=== PATIENT | female | born 1950 | race Caucasian/White ===

== ENCOUNTER 2017-04-21 14:36 | Outpatient (CLI) | payer MEDICARE ==
--- NOTE | 2017-04-21 15:38 | RAD ---
CERVICAL SPINE AP AND LATERAL: History: N54.12 cervical radiculopathy. FINDINGS: ACDF at C4-5 with adequate osseous corporation. There is also posterior spinal fusion at this level s een laterally on the right. There is progressive degenerative disc space disease at C6-7 with bridgin g osteophyte. There is also some new height loss at C6. There is also degenerative disease at C6-7. There appears to be a fracture of the odontoid process. This can be seen back to 2008 and likely a no n-union. IMPRESSION: 1. Chronic non-union odontoid process fracture. 2. Progressive degenerative disc space disease at C6-7 with height loss, anterior osteophyte formatio n as well as height loss at the C6 vertebral body and C7 vertebral bodies. POS: [facility]
--- NOTE | 2017-04-21 16:21 | MRI ---
MRI CERVICAL SPINE WITHOUT CONTRAST 04/21/17 HISTORY: M54.12, cervical radiculopathy. Right neck pain radiating down to the right arm for one month. COMPARISON: Cervical spine radiograph same day as well as MRI prior date. FINDINGS: There are laminectomy changes at C3, C4, and C5. There is ACDF hardware at C4-5 as well as right side d unilateral posterior solid fusion hardware. There is effacement of the dorsal CSF space at C2-3 lev el. Marrow signal of the cord appears normal. The cerebellar tonsils terminate above the foramen magnum. Old C2 type II dens fracture nonunion. Subchondral cyst formation. Levels are as follows: C2-3: There is mild uncinate process hypertrophy. Mild neural foraminal narrowing bilaterally. C3-4: Difficult to evaluate due to artifact. Mild uncinate process hypertrophy. There is moderate to severe right and moderate left sided neural foraminal narrowing. Spinal canal is not narrowed. C4-5: ACDF hardware. No significant neural foraminal or spinal canal narrowing. C5-6: Difficult to evaluate due to hardware. There is moderate uncinate process hypertrophy. Moderate facet arthrosis. Moderate left and mild right sided neural foraminal narrowing. C6-7: Mild facet arthrosis. Mild uncinate process hypertrophy. No significant neural foraminal or spi nal canal narrowing. IMPRESSION: 1. Moderate degenerative change as described above. 2. Posterior disc osteophyte complex at T1-T2 effacing the ventral CSF space narrowing the spina l canal to approximately 6 mm. 3. Nonunion type II odontoid process fracture. POS: [facility]
== END 2017-04-21 14:37 | disposition home or self-care (01) ==
LOC: TBSIIMAG 14:36
PROVIDERS: ATTEND Neurological Surgery
DX: M50.10 Cervical disc disorder with radiculopathy, unspecified cervical region (principal); S12.110K Anterior displaced Type II dens fracture, subsequent encounter for fracture with nonunion
CPT/HCPCS: 72040; 72141